=== PATIENT | female | born 1940 | race Caucasian/White ===

== ENCOUNTER 2022-10-05 13:31 | Observation (INO) | payer MEDICARE, SELFPAY ==
[2022-10-05] VITALS (14 sets, daily range): BP systolic 100–141; BP diastolic 51–78; PULSE 49–70; RESP 13–24; TEMP 36.6–36.7; O2SAT 91–98; BMI 28.8
--- NOTE | ~2022-10-05 | US_ITS ---
EXAMINATION: US carotid duplex BI DATE: 10/06/2022 10:52 INDICATION: Transient ischemic episode. Encephalopathy with altered mental status and gait disturbanc e TECHNIQUE: Grayscale, color Doppler, and pulsed Doppler images of the cervical carotid arteries were obtained. The degree of vessel stenosis is placed in one of the following categories: normal, <50%, 5 0-69%, >=70% but less than near-occlusion, near-occlusion, or total occlusion. Note that percent sten osis relative to normal distal artery lumen diameter is indirectly measured from velocity measurement s as described by Da, et al. Radiology 2003; 229:340-346. COMPARISON: None. FINDINGS: RIGHT: The right common carotid artery (CCA) peak systolic velocity (PSV) is 66 cm/s. The right internal car otid artery (ICA) PSV is 72 cm/s. The right ICA end-diastolic velocity (EDV) is 17 cm/s. The right IC A/CCA PSV ratio is 1.1. Grayscale and color Doppler images yield an estimate of <50% diameter reducti on from plaque in the ICA. The external carotid artery (ECA) PSV is 59 cm/s. There is antegrade flow in the right vertebral artery. LEFT: The left CCA PSV is 67 cm/s. The left ICA PSV is 73 cm/s. The left ICA EDV is 21 cm/s. The left ICA/C CA PSV ratio is 1.1. Grayscale and color Doppler images yield an estimate of <50% diameter reduction from plaque in the ICA. The ECA PSV is 91 cm/s. There is antegrade flow but with high resistance wave form in what is labeled as the left vertebral artery. Suspect this does not represent the left renal artery as no flow void for a patent left vertebral artery is evident at the level of the ring of C1 o n the prior brain MRI. IMPRESSION: 1. <50% stenosis in the right internal carotid artery. 2. <50% stenosis in the left internal carotid artery. 3. Left vertebral artery not definitively identified with absent left vertebral artery flow void at t he level of the ring of C1 on prior brain MR. Reviewed, dictated and finalized at location L. IMPRESSION: 1. <50% stenosis in the right internal carotid artery. 2. <50% stenosis in the left internal carotid artery. 3. Left vertebral artery not definitively identified with absent left vertebral artery flow void at the level of the ring of C1 on prior brain MR.
--- NOTE | ~2022-10-05 | MR_ITS ---
MRI of the brain Clinical History: Gait disturbance Technique: Axial and sagittal T1-weighted images were acquired. These were followed by axial T2-weigh tushar, diffusion weighted, gradient, and FLAIR images. Findings: No acute infarct, intracranial hemorrhage, or mass lesion identified. There are extensive c hronic white matter changes throughout the periventricular white matter bilaterally. Ventricles and subarachnoid spaces are unremarkable. Orbits are unremarkable. Paranasal sinuses and m astoids are clear. Major intracranial flow voids appear intact. Sagittal midline structures are intact. IMPRESSION: No acute abnormality identified. Extensive chronic microvascular ischemic change. Reviewed, dictated and finalized at location M.
--- NOTE | ~2022-10-05 | XR_ITS ---
EXAMINATION: XR chest 1V portable Exam Date/Time: 10/05/2022 15:11 CDT HISTORY: ams Comparison: CT chest 05/25/2016. RESULT: Lines, tubes, and devices: None. Lungs and pleura: Reticulonodular opacities in the right upper lung, may represent chronic atypical infection or scarring. Scar/atelectasis in the left midlung. Minimal streaky opacities in the bilater al lower lungs may represent scar/atelectasis. Senescent and emphysematous change. Cardiomediastinal silhouette: Stable. Other: No acute osseous or upper abdominal finding. IMPRESSION: Right upper lung opacities may represent chronic atypical infection or scarring. Otherwise, no acute cardiopulmonary process detected. Reviewed, dictated and finalized at location K. IMPRESSION: Right upper lung opacities may represent chronic atypical infection or scarring . Otherwise, no acute cardiopulmonary process detected.
--- NOTE | ~2022-10-05 | CT_ITS ---
EXAMINATION: CT brain wo con DATE: 10/05/2022 16:54 INDICATION: Altered mental status. Weakness. TECHNIQUE: Computed tomography (CT) of the head was performed without intravenous contrast. The mA wa s adjusted according to patient size. Iterative reconstruction technique was employed. The dose-lengt h product was 605.33 mGy-cm. COMPARISON: None FINDINGS: There are scattered areas of low attenuation in the cerebral white matter. There is no intr acranial hemorrhage, acute infarction, or abnormal intracranial mass lesion. The ventricles are emigdio l in size. There are likely changes of ocular lens replacement surgeries. The paranasal sinuses are c lear. The mastoid air cells are normal. IMPRESSION: 1. Extensive nonspecific cerebral white matter disease, which likely represents chronic small vessel ischemic disease. Reviewed, dictated and finalized at location A.
--- NOTE | ~2022-10-05 | CT_ITS ---
CT ANGIOGRAM NECK AND HEAD History: Left vertebral artery stenosis. Technique: Axial noncontrast imaging of the brain was performed. Serial spiral axial images through t he head and neck were then obtained during arterial phase IV injection of 100 cc of Omnipaque 350. 3- D postprocessing and MIP images were then reconstructed on the remote workstation. Dose reduction forest hnique was used on this scan by utilizing automated exposure control and iterative reconstruction forest hnique. The dose-length product (DLP) was 1536.32 mGy-cm. COMPARISON: 10/05/2022 No acute abnormality seen on noncontrast brain CT images. Stable chronic white matter disease and mil d generalized atrophy. CTA neck findings: Left vertebral artery is diffusely, markedly hypoplastic, but appears to be paten t otherwise. Right vertebral artery is patent, unremarkable. Bilateral common carotid, internal carot id, and external carotid arteries are patent. There are small calcified plaques of the proximal right internal carotid artery, without stenosis. There are small calcified plaques at the proximal left in ternal carotid artery, with approximately 20% stenosis. The proximal right internal carotid artery de monstrates 0% stenosis relative to the normal distal artery lumen diameter. The proximal left interna l carotid artery demonstrates 20% stenosis relative to the normal distal artery lumen diameter. CTA head findings: The distal vertebral arteries, basilar artery, and posterior cerebral arteries are patent. Distal internal carotid arteries, middle cerebral arteries, and anterior cerebral arteries a re patent. No large vessel occlusion. No stenosis or aneurysm. Severe emphysema noted at the lung apices. Probable scarring noted in the left upper lobe. Impression: Markedly hypoplastic, but patent, left vertebral artery. 20% stenosis at the proximal left internal carotid artery relative to the normal distal artery lumen diameter. Reviewed, dictated and finalized at location M. Impression: Markedly hypoplastic, but patent, left vertebral artery. 20% stenosis at the proximal left internal carotid artery relative to the emigdio l distal artery lumen diameter.
--- NOTE | 2022-10-05 13:42 | ECG_ITS ---
Measurements Intervals Doole Rate: 50 P: 15 SD: 178 QRS: 55 QRSD: 70 T: 55 QT: 448 QTc: 410 Interpretive Statements SINUS BRADYCARDIA LOW QRS VOLTAGE IN PRECORDIAL LEADS BORDERLINE ST-T WAVE ABNORMALITY- HIGH LATERAL LEADS BASELINE ARTIFACT- I, III, AVR, AVL, AVF BORDERLINE ECG NO PREVIOUS ECG AVAILABLE FOR COMPARISON Electronically Signed On 10-05-2022 15:34:33 CDT by Munir Loya D.O.
[2022-10-05 13:59] LABS: Basophils Absolute Auto 0.1 K/mm3 (0.0-0.1); Basophils Percent Auto 0.5 % (0.2-1.2); Eosinophils Absolute Auto 0.3 K/mm3 (0-0.3); Eosinophils Percent Auto 2.8 % (0-4.4); Hematocrit 39.4 % (37.0-47.0); Hemoglobin 13.3 g/dL (12.0-15.0); Immature Granulocyte Absolute 0.08 K/mm3 (0.00-0.031); Immature Granulocyte Percent A 0.8 % (0-0.5); Lymphocytes Absolute Auto 2.66 K/mm3 (0.9-3.2); Lymphocytes Percent Auto 26.8 % (18.3-44.2); Mean Corpuscular HGB Conc 33.8 g/dl (32-36); Mean Corpuscular Hemoglobin 28.8 pg (26-34); Mean Corpuscular Volume 85.3 fl (80-100); Mean Platelet Volume 9.6 fl (7.4-10.4); Monocytes Absolute Auto 0.8 K/mm3 (0.1-0.6); Monocytes Percent Auto 7.6 % (2.6-8.5); Neutrophils Absolute Auto 6.1 K/mm3 (1.3-6.7); Neutrophils Percent Auto 61.5 % (45.5-73.1); Platelet Count Result 215 k/mm3 (150-375); Red Blood Count 4.62 M/mm3 (4.2-5.4); Red Cell Distribution Width 13.2 % (11.5-14.5); White Blood Count 9.9 K/mm3 (4.5-10.0)
[2022-10-05 14:17] LABS: Alanine Aminotransferase 30 U/L (6-35); Albumin Level 4.3 g/dL (3.5-5.1); Alkaline Phosphatase 109 U/L (38-126); Anion Gap 7 mmol/L (8-16); Aspartate Amino Transferase 38 U/L (14-36); Bilirubin,Total 0.6 mg/dL (0.2-1.3); Blood Urea Nitrogen 23 mg/dL (7-17); Carbon Dioxide 27 mmol/L (22-30); Chloride 98 mmol/L (98-107); Estimated CRCL calculation 33 ml/min; Estimated Glomerular Filt Rate 48; Glucose 97 mg/dL (65-110); Potassium 4.2 mmol/L (3.4-5.0); Sodium 132 mmol/L (137-145)
[2022-10-05 15:34] LABS: Appearance Urine Clear (Clear); Bilirubin Urine Negative (Negative); Blood Urine Negative (Negative); Color Urine Yellow (Yellow); Glucose Urine UA Negative (Negative); Ketones Urine Negative (Negative); Leukocyte Esterase Ur Negative LEU/UL (Negative); Nitrate Urine Negative (Negative); Protein Urine Negative (Negative); Specific Grav Ur 1.017 (1.001-1.035); pH Urine 6.5 (5.0-9.0)
[2022-10-05 15:38] LABS: Add Urine Microscopic? NO
[2022-10-05 16:14] LABS: INR 1.1; Partial Thromboplastin Time 29.6 SECONDS (22.3-36.8)
--- NOTE | 2022-10-05 16:21 | ED.AMS ---
HPI - Altered Mental Status General Chief Complaint: Altered Mental Status Stated Complaint: altered Time Seen by Provider: 10/05/22 15:04 History of Present Illness HPI narrative: Patient is an 82-year-old female with a history of dementia, depression, anxiety, hyperlipidemia, hypertension presenting with altered mental status. Patient's and daughter are at bedside. They state that this morning she had an episode characterized by slurred speech and ataxia. States that she seemed very off balance. States that this is happened off and on over the last several months but this was the most severe episode. They state that she was actually supposed to see her PCP this afternoon but they came into the ER due to this episode. Currently, the patient denies complaints. No recent fevers, headache, numbness or focal weakness, chest pain, shortness of breath, cough, abdominal pain, nausea or vomiting, diarrhea, dysuria, leg swelling. Patient's family reports that she seems to drink a lot of water. Review of Systems Review of Systems: All systems reviewed & are unremarkable except as noted in HPI and below Exam Narrative: GENERAL: Elderly female lying in bed in no acute distress HEAD: Normocephalic, atraumatic. EYES: PERRLA and EOMI. ENT: Nares clear, no rhinorrhea or epistaxis. Mucous membranes moist. NECK: Supple. CHEST: Clear to auscultation. No respiratory distress. HEART: Regular rate and rhythm. ABDOMEN: Soft, nontender, nondistended, normal active bowel sounds. EXTREMITIES: Normal range of motion. No edema. SKIN: Warm, dry, no rash. NEURO: No focal deficits. Alert and oriented x2. 5 out of 5 strength in all extremities, no sensory deficits, no pronator drift, no facial droop or slurred speech PSYCH: Normal mood and affect. Course Vital Signs Vital signs: Vital Signs Temperature 97.9 F 10/05/22 13:35 Pulse Rate 49 L 10/05/22 13:35 Respiratory Rate 20 10/05/22 13:35 Blood Pressure 100/55 L 10/05/22 13:35 Pulse Oximetry 98 10/05/22 13:35 Oxygen Delivery Room Air 10/05/22 13:35 Temperature 97.9 F 10/05/22 13:35 Pulse Rate 56 L 10/05/22 15:30 Respiratory Rate 17 10/05/22 15:30 Blood Pressure 116/78 10/05/22 15:16 Pulse Oximetry 95 10/05/22 15:30 Oxygen Delivery Room Air 10/05/22 13:35 MDM - Altered Mental Status MDM Narrative Medical decision making narrative: Patient is an 82-year-old female presenting with an episode of slurred speech and ataxia. Patient is bradycardic, otherwise vitals are within normal limits. Exam is remarkable for the above. EKG per my interpretation shows sinus bradycardia, normal axis, nonspecific ST-T wave abnormalities, no ST elevations or depressions. No priors for comparison. Lab Data 10/05/22 13:50 10/05/22 13:50 Labs: Lab Results 10/05/22 10/05/22 10/05/22 Range/Units 13:50 13:50 15:21 WBC 9.9 (4.5-10.0) K/mm3 RBC 4.62 (4.2-5.4) M/mm3 Hgb 13.3 (12.0-15.0) g/dL Hct 39.4 (37.0-47.0) % MCV 85.3 (80-100) fl MCH 28.8 (26-34) pg MCHC 33.8 (32-36) g/dl RDW 13.2 (11.5-14.5) % Plt Count 215 (150-375) k/mm3 MPV 9.6 (7.4-10.4) fl Immature Gran % (Auto) 0.8 H (0-0.5) % Neut % (Auto) 61.5 (45.5-73.1) % Lymph % (Auto) 26.8 (18.3-44.2) % Price % (Auto) 7.6 (2.6-8.5) % Eos % (Auto) 2.8 (0-4.4) % Baso % (Auto) 0.5 (0.2-1.2) % Lymph # (Auto) 2.66 (0.9-3.2) K/mm3 Price # (Auto) 0.8 H (0.1-0.6) K/mm3 Eos # (Auto) 0.3 (0-0.3) K/mm3 Baso # (Auto) 0.1 (0.0-0.1) K/mm3 Abs Immat Gran (auto) 0.08 H (0.00-0.031) K/mm3 Absolute Neuts (auto) 6.1 (1.3-6.7) K/mm3 Absolute Nucleated RBC 0.0 (0.0-0.012) K/mm3 Nucleated RBC % 0.0 (0.0-0.2) % PT (11.1-14.7) Seconds INR APTT (22.3-36.8) SECONDS Sodium 132 L (137-145) mmol/L Potassium 4.2 (3.4-5.0) mmol/L Chloride 98 (98-107) mmol/L Carbon Di
[2022-10-05 16:46] LABS: Troponin I 0.027 ng/mL (0.000-0.034)
[2022-10-05] MEDS: SODIUM CHLORIDE 0.9% IV 1,000 ML 999 ML IV CONT (17:29)
--- NOTE | 2022-10-05 20:09 | PM.IMHP ---
H&P: HPI History of Present Illness Date/Time: 10/05/22 20:09 Chief Complaint: Gait disturbance Narrative: This is an 82-year-old female with past medical history significant for dyslipidemia, generalized anxiety disorder, hypertension. Patient presented to the emergency room after having episode of gait disturbance feeling wobbly on her is on her gait unsteady have fell several times at home with no trauma or injury or loss of consciousness when she got up in the morning she was her usual self this happened at around noontime patient denied any vision changes, headaches, lightheadedness, no palpitations, no nausea, no vomiting, no abdominal pain, no diarrhea, no fevers, no rigors, no chills, no focal sensorimotor deficit. According to emergency room notes as per and daughter patient had some speech disturbance as well patient is now back to her usual self and denies any issues. Preliminary workup was significant for: CT of the head without contrast was reported as: FINDINGS: There are scattered areas of low attenuation in the cerebral white matter. There is no intracranial hemorrhage, acute infarction, or abnormal intracranial mass lesion. The ventricles are normal in size. There are likely changes of ocular lens replacement surgeries. The paranasal sinuses are clear. The mastoid air cells are normal. IMPRESSION: 1. Extensive nonspecific cerebral white matter disease, which likely represents chronic small vessel ischemic disease. A chest x-ray was reported as: RESULT: Lines, tubes, and devices:? None. Lungs and pleura:? Reticulonodular opacities in the right upper lung, may represent chronic atypical infection or scarring. Scar/atelectasis in the left midlung. Minimal streaky opacities in the bilateral lower lungs may represent scar/atelectasis. Senescent and emphysematous change. Cardiomediastinal silhouette:? Stable. Other:? No acute osseous or upper abdominal finding. ? IMPRESSION: Right upper lung opacities may represent chronic atypical infection or scarring. Otherwise, no acute cardiopulmonary process detected. Review of Systems Review of Systems: Gait disturbance, wobbly, falls, speech disturbance. Constitutional: Constitutional: Denies chills, Denies fatigue, Denies fever(s), Denies lethargy, Denies malaise, Denies night sweats, Denies poor appetite and Denies weakness Eyes: Eyes: Denies change in vision ENT: Denies dysphagia, Denies vertigo, Denies dizziness and Denies odynophagia Cardiovascular: Cardiovascular: Denies chest pain, Denies leg edema, Denies lightheadedness, Denies radiating jaw, neck or arm pain and Denies palpitations Respiratory: Respiratory: Denies chest congestion, Denies cough, Denies dyspnea on exertion and Denies wheezing Gastrointestinal: Gastrointestinal: Denies abdominal pain, Denies dyspepsia, Denies heartburn, Denies diarrhea, Denies nausea and Denies vomiting Genitourinary: Genitourinary: Denies dysuria Musculoskeletal: Musculoskeletal: Denies myalgias, Denies joint swelling and Denies muscle weakness Integumentary/Breasts: Skin/Breast: Denies rash Neurologic: Reports Abnormal speech present, Reports abnormal gait, Denies focal weakness and Denies Sensory deficit (Neuro) Psychiatric: Psychiatric: Reports no additional psychiatric complaints and Reports as per HPI Endocrine: Endocrine: Denies cold intolerance, Denies flushing, Denies heat intolerance, Denies polyphagia, Denies polydipsia and Denies palpitations Hematologic/Lymphatic: Hematologic/Lymphatic: Reports no additional hematologic/lymphatic complaints and Reports as per HPI Allergic/Immunologic: Allergic/Immunologic: Reports no additional allergic/immunologic complaints and Reports as per HPI [facility] Family History Family History (Updated 10/05/22 @ 22:02 by Yan Goyal RN) Mother Diabetes mellitus AA (aortic aneurysm) Father Heart problem Social History Social History (Reviewed 10/05/22
[2022-10-05 21:02] LABS: Troponin I 0.028 ng/mL (0.000-0.034)
--- NOTE | 2022-10-05 21:20 | ADMGEN ---
This patient, Georgiana Pinedo, was admitted to Medical Room 247-. Patient/family oriented to hospital policies and general routines including ID bracelet, bed and alarms, visiting hours, pain management, procedures, bathroom and other care routines, personal items, smoking policy, room service/diet, and visiting hours. Information on how to activate the Rapid Response Team has been discussed. Patient/Family are encouraged to report perceived risks to care and to ask questions if they do not understand what they are told or what they should do.
[2022-10-06] VITALS (9 sets, daily range): BP systolic 115–146; BP diastolic 51–58; PULSE 54–72; RESP 16–20; TEMP 36.3–36.6; O2SAT 93–100
--- NOTE | 2022-10-06 | ECHO_ITS ---
Patient Info Name: Georgiana Pinedo Age: 82 years : 1940 Gender: Female Ht: 65 in Wt: 172 lbs BSA: 1.91 m2 HR: 59 bpm BP: 146 / 55 mmHg Heart Rhythm: Sinus Rhythm Technical Quality: Fair Exam Date: 10/06/2022 1:18 PM Exam Location: [facility] Patient Status: Outpatient Admit Date: 10/05/2022 Staff Ordering Physician: Shayy Trujillo APRN Nurse First Aid: Mona Michael RDCS Attending Provider: Taylor Alberto MD Referring Physician: Ronnie ARMENTA; Exam Type: CA echo dop bubble study w con Study Info Indications - TIA Complete two-dimentional, color flow and Doppler transthoracic echocardiogram is performed with agitated saline and with contrast to opacify the left ventricle and to improve the delineation of the left ventricle endocardial borders. Contrast/Agitated Saline Contrast/Ag. Saline: Agitated Saline Amount: 20.00 ml Administered By: Shannan Gonzales RDCS Existing IV Access: Yes IV Access Condition: patent with no signs of infiltration Contrast/Ag. Saline: Definity Amount: 3.00 ml Administered By: Mona Michael RDCS Existing IV Access: Yes IV Access Condition: patent with no signs of infiltration Summary 1. Left ventricular chamber dimension is normal. 2. Left ventricular systolic function is normal, estimated at >70%. 3. The left ventricular diastolic function is grade I diastolic dysfunction. 4. Right ventricular systolic function is normal. 5. Intact interatrial septum visualized by color flow and agitated saline imaging. Negative bubble study. 6. There is mild tricuspid valve regurgitation. 7. There is mild-moderate aortic atherosclerosis. Left Ventricle Left ventricular chamber dimension is normal. Left ventricular systolic function is normal, estimated at >70%. The left ventricular diastolic function is grade I diastolic dysfunction. Global longitudinal strain is abnormal at -16 %. Right Ventricle Right ventricular chamber dimension is normal. Right ventricular systolic function is normal. Left Atria Left atrial chamber dimension is normal. Right Atria Right atrial chamber dimension is normal. Atrial Septum Intact interatrial septum visualized by color flow and agitated saline imaging. Negative bubble study. Aortic Valve The aortic valve is trileaflet. There is mild aortic valve sclerosis. There is no aortic valve stenosis. There is no aortic valve regurgitation. Pulmonic Valve The pulmonic valve is not well visualized. Mitral Valve There is no mitral valve stenosis. There is trace mitral valve regurgitation. The mitral valve annulus is mildly calcified. Tricuspid Valve The tricuspid valve leaflets are normal. There is no significant tricuspid valve stenosis. There is mild tricuspid valve regurgitation. Pericardium/Pleural The pericardium appears epicardial fat pad. There is no pericardial effusion. Inferior Vena Cava Normal inferior vena cava with >50% collapse upon inspiration consistent with normal right atrial pressure, 3 mmHg. Aorta The aortic root size at the sinus of Valsalva is normal. There is mild-moderate aortic atherosclerosis. Left Ventricular Outflow Tract Name Value Normal L
[2022-10-06] MEDS: cefTRIAXone 2 GM/NS 100 ML 2 GM/100 ML BAG IVPB ×2 (02:07→21:27)
[2022-10-06] MEDS: buPROPion HCL SR (12 HR) 150 MG TAB PO ×2 (08:58→16:42)
[2022-10-06] MEDS: hydroCHLOROthiazide 12.5 MG CAPSULE PO (08:58)
[2022-10-06] MEDS: lisinopriL 10 MG TABLET PO (08:58)
[2022-10-06] MEDS: ATORVASTATIN 20 MG TABLET PO (08:58)
[2022-10-06] MEDS: METOPROLOL TARTRATE 50 MG TAB PO ×2 (08:59→21:27)
--- NOTE | 2022-10-06 09:13 | PM.IMPN ---
Progress Note: A&P Assessment and Plan (1) TIA (transient ischemic attack): Code(s): G45.9 - Transient cerebral ischemic attack, unspecified Status: Suspected Assessment and Plan: Presented for evaluation of slurred speech, ataxia and frequent falls. glucose [address] without hemorrhage. Brain MRI without acute or subacute infarct, extensive chronic microvascular ischemic changes were noted Echo with bubble study without PFO or ASD Carotid US with less than 50% stenosis right and left ICA Neuro checks Q4 PT/OT Consulted Neurology B12 [id number], folate 8.5, TSH 3.15, lipid panel- LDL 36, HDL 44, triglycerides 92. Continue atorvastatin Monitor BP and continue antihypertensive (2) Gait disturbance: Code(s): R26.9 - Unspecified abnormalities of gait and mobility Status: Acute Assessment and Plan: TIA work up r/o cerebellar stroke PT/OT evaluation Patient with resolution of symptoms at this time (3) Lung infiltrate: Code(s): R91.8 - Other nonspecific abnormal finding of lung field Status: Acute Assessment and Plan: possible right upper chest pneumonia with Lung infiltrate seen on chest x-ray and patient presenting with cough and altered mental status Blood cultures pending given Rocephin 1 g Q 24 hours and Zithromax 500 mg Q 24 hours, 1st dose given today 314. Family reports patient is improved after antibiotics initiated. Will continue antibiotics for 5 to to 7 days depending on patient's overall response (4) Hypertension: Code(s): I10 - Essential (primary) hypertension Status: Chronic Assessment and Plan: continue p.o. metoprolol tartrate b.i.d., lisinopril with hydrochlorothiazide as BP tolerates Continue to monitor Time Spent With Patient Time with patient: 25 - 35 minutes Subjective Date/time seen: 10/06/22 09:13 patient found sitting up in the chair with family at bedside. She denies any symptoms at this time. Family reports prior to admission the patient was hallucinating and seeing bugs, unable to stand, and very confused which is not baseline. her reports she had a nonproductive cough as well. Review of Systems Review of Systems: All systems reviewed & are unremarkable except as noted in HPI and below Exam Narrative: General: No acute distress.? Well-developed older adult female sitting up in bed Mental Status/Psych: Awake, alert and oriented to person, place, time with clear speech. Pleasant and cooperative. Skin: fair, warm, dry and intact without rashes or lesions. No open wounds. fair turgor.? HEENT: Normocephalic. Sclera is non-icteric. PERRL, EOM intact without nystagmus. Oral mucosa pink and moist. Neck: No JVD. Heart: S1 and S2 regular rate and rhythm. No murmurs, gallops, or rubs auscultated. Chest: Respirations even and unlabored. Lung sounds diminished right upper chest, no wheezes, rhonchi, or rales. Abdomen: Soft, obese and non-tender to palpation.? Bowel sounds present in all 4 quadrants. No guarding. Extremities:? No edema, erythema or calf tenderness. Grossly normal ROM. Neurological: No focal sensory or motor deficits. gait not tested. No pronator drift, facial droop, tongue deviation, and cranial nerves 2-12 are intact. Bxef-og-ctas is intact Objective Data Vital Signs Vital Signs: Vital Signs - 24 hr 10/05/22 13:35 10/05/22 15:02 10/05/22 15:02 Temperature 97.9 F Pulse Rate 49 L 52 L 61 Respiratory Rate 20 16 13 Blood Pressure 100/55 L 116/78 132/70 Pulse Oximetry 98 94 91 Oxygen Delivery Room Air 10/05/22 15:03 10/05/22 15:15 10/05/22 15:16 Temperature Pulse Rate 70 60 Respiratory Rate 19 24 H 22 H Blood Pressure 116/78 Pulse Oximetry 94 92 93 Oxygen Delivery 10/05/22 15:30 10/05/22 16:00 10/05/22 16:45 Temperature Pulse Rate 56 L 61 60 Respiratory Rate 17 18 17 Blood Pressure 112/76 118/60 Pulse Oximetry 95 94 95 Oxygen Delivery 10/05/22 17:30 0
[2022-10-06 09:23] LABS: Basophils Absolute Auto 0.1 K/mm3 (0.0-0.1); Basophils Percent Auto 0.7 % (0.2-1.2); Eosinophils Absolute Auto 0.3 K/mm3 (0-0.3); Eosinophils Percent Auto 3.4 % (0-4.4); Hematocrit 37.7 % (37.0-47.0); Hemoglobin 12.5 g/dL (12.0-15.0); Immature Granulocyte Absolute 0.04 K/mm3 (0.00-0.031); Immature Granulocyte Percent A 0.5 % (0-0.5); Lymphocytes Absolute Auto 2.32 K/mm3 (0.9-3.2); Lymphocytes Percent Auto 31.3 % (18.3-44.2); Mean Corpuscular HGB Conc 33.2 g/dl (32-36); Mean Corpuscular Hemoglobin 29.2 pg (26-34); Mean Corpuscular Volume 88.1 fl (80-100); Mean Platelet Volume 10.4 fl (7.4-10.4); Monocytes Absolute Auto 0.8 K/mm3 (0.1-0.6); Monocytes Percent Auto 10.5 % (2.6-8.5); Neutrophils Percent Auto 53.6 % (45.5-73.1); Platelet Count Result 191 k/mm3 (150-375); Red Blood Count 4.28 M/mm3 (4.2-5.4); Red Cell Distribution Width 13.4 % (11.5-14.5); White Blood Count 7.4 K/mm3 (4.5-10.0)
[2022-10-06 09:37] LABS: Anion Gap 6 mmol/L (8-16); Blood Urea Nitrogen 19 mg/dL (7-17); CRP 0.9 mg/dL (<1.0); Calcium 8.9 mg/dL (8.4-10.2); Carbon Dioxide 26 mmol/L (22-30); Chloride 102 mmol/L (98-107); Cholesterol 108 mg/dL (0-200); Estimated CRCL calculation 38 ml/min; Estimated Glomerular Filt Rate 48; Glucose 75 mg/dL (65-110); HDL Direct 44 mg/dL; Potassium 3.9 mmol/L (3.4-5.0); Sodium 134 mmol/L (137-145); Triglycerides 92 mg/dL (<150)
[2022-10-06 09:46] LABS: LDL Cholesterol Direct 36 mg/dL
[2022-10-06 09:51] LABS: Procalcitonin 0.1 ng/mL
[2022-10-06 11:07] LABS: Folic Acid 8.5 ng/mL (2.76->20)
[2022-10-06] MEDS: PERFLUTREN LIPID MICROSPHERES 1.5 ML VIAL DILUTED TO 10 ML TOTAL VOLUME IV PUSH (13:55)
[2022-10-07] VITALS (11 sets, daily range): BP systolic 84–144; BP diastolic 45–60; PULSE 48–60; RESP 18–20; TEMP 36.4–37; O2SAT 92–96
[2022-10-07 05:39] LABS: Basophils Absolute Auto 0.1 K/mm3 (0.0-0.1); Basophils Percent Auto 0.7 % (0.2-1.2); Eosinophils Absolute Auto 0.3 K/mm3 (0-0.3); Eosinophils Percent Auto 3.6 % (0-4.4); Hematocrit 37.7 % (37.0-47.0); Hemoglobin 12.5 g/dL (12.0-15.0); Immature Granulocyte Absolute 0.05 K/mm3 (0.00-0.031); Immature Granulocyte Percent A 0.7 % (0-0.5); Lymphocytes Absolute Auto 2.37 K/mm3 (0.9-3.2); Lymphocytes Percent Auto 31.5 % (18.3-44.2); Mean Corpuscular HGB Conc 33.2 g/dl (32-36); Mean Corpuscular Hemoglobin 28.9 pg (26-34); Mean Corpuscular Volume 87.3 fl (80-100); Mean Platelet Volume 10.2 fl (7.4-10.4); Monocytes Absolute Auto 0.7 K/mm3 (0.1-0.6); Monocytes Percent Auto 9.8 % (2.6-8.5); Neutrophils Percent Auto 53.7 % (45.5-73.1); Platelet Count Result 188 k/mm3 (150-375); Red Blood Count 4.32 M/mm3 (4.2-5.4); Red Cell Distribution Width 13.2 % (11.5-14.5); White Blood Count 7.5 K/mm3 (4.5-10.0)
[2022-10-07 05:41] LABS: Alanine Aminotransferase 29 U/L (6-35); Albumin Level 3.9 g/dL (3.5-5.1); Alkaline Phosphatase 85 U/L (38-126); Anion Gap 7 mmol/L (8-16); Aspartate Amino Transferase 37 U/L (14-36); Bilirubin,Total 0.5 mg/dL (0.2-1.3); Blood Urea Nitrogen 18 mg/dL (7-17); Carbon Dioxide 25 mmol/L (22-30); Chloride 103 mmol/L (98-107); Estimated CRCL calculation 38 ml/min; Estimated Glomerular Filt Rate 48; Glucose 83 mg/dL (65-110); Potassium 4.3 mmol/L (3.4-5.0); Sodium 135 mmol/L (137-145)
[2022-10-07] MEDS: METOPROLOL TARTRATE 50 MG TAB PO (08:29)
[2022-10-07] MEDS: ATORVASTATIN 20 MG TABLET PO (08:29)
[2022-10-07] MEDS: hydroCHLOROthiazide 12.5 MG CAPSULE PO (08:29)
[2022-10-07] MEDS: buPROPion HCL SR (12 HR) 150 MG TAB PO (08:29)
[2022-10-07] MEDS: lisinopriL 10 MG TABLET PO (08:30)
--- NOTE | 2022-10-07 10:02 | WPDNEURCNPN ---
Assessment and Plan Assessment and plan (1) Gait disturbance: Code(s): R26.9 - Unspecified abnormalities of gait and mobility Status: Acute (2) Lung infiltrate: Code(s): R91.8 - Other nonspecific abnormal finding of lung field Status: Acute (3) Hypertension: Code(s): I10 - Essential (primary) hypertension Status: Chronic (4) Dementia: Code(s): F03.90 - Unspecified dementia, unspecified severity, without behavioral disturbance, psychotic disturbance, mood disturbance, and anxiety Status: Acute Plan Georgiana Pinedo is a 82 year old female with a history of dementia, anxiety, depression, hyperlipidemia, and hypertension presenting with gait instability and speech changes. MRI brain negative for acute stroke. Currently being treated for possible pneumonia. Seems like there is a chronic dementia component that may have been acute exacerbated by possible underlying infection. On carotid Doppler the L vertebral artery was not definitively identified with absent L vertebral artery flow void at the level of the ring of C1. Vertebrobasilar insufficiency could be the cause of her symptoms. - Will obtain CTA brain and carotid - If there is significant stenosis/occlusion --will need to add Plavix 75mg daily and also refer to stroke Neurologist as outpatient for possible intervention Consult date: 10/07/22 Reason for consult: Altered mental status HPI: Georgiana Pinedo is a 82 year old female with a history of dementia, anxiety, depression, hyperlipidemia, and hypertension. Patient presented to [place] ED after having gait issues of feeling unsteady. She did have several falls at home on day of presentation but did not hit her head or have any loss of consciousness. Patient woke up yesterday morning feeling like herself, and started to become symptomatic around afternoon. Per daughter patient had some speech issues (slurred). Per , patient was acting like she was drunk . He also mentioned that patient has had about two to three similar episodes over the past few months. She already takes aspirin 81mg daily. She does not smoke. In the ED CT head showed small vessel disease. Her labs were unrevealing. CXR was concerning for pneumonia. MRI brain showed no acute abnormalities. Carotid Doppler showed <50% stenosis bilaterally, as well as left vertebral artery not definitively identified with absent L vertebral artery flow void at the level of the ring of C1. Additional labs including B12, folate, and TSH were all within normal range. Her LDL was 36. Patient is currently on antibiotics for possible pneumonia. She does not take anything for dementia. Patient feels pretty much at baseline. She denies any dizziness currently and her speech is normal per family. Review of Systems Constitutional: Constitutional: Reports no additional constitutional complaints Eyes: Eyes: Reports no additional eye complaints ENT: Reports system reviewed and no additional complaints, except as documented Cardiovascular: Cardiovascular: Reports no additional cardiovascular complaints Respiratory: Respiratory: Reports no additional respiratory complaints Gastrointestinal: Gastrointestinal: Reports no additional gastrointestinal complaints Genitourinary: Genitourinary: Reports no additional female genitourinary complaints Musculoskeletal: Musculoskeletal: Reports no additional musculoskeletal complaints Integumentary/Breasts: Skin/Breast: Reports system reviewed and no additional complaints, except as docu Neurologic: Reports as per HPI Psychiatric: Psychiatric: Reports no additional psychiatric complaints [facility] Family History Family History (Updated 10/05/22 @ 22:02 by Yan Goyal RN) Mother Diabetes mellitus AA (aortic aneurysm) Father Heart problem Social History Social History Smoking packs per day: 1 Smoking cigarettes per day: 20.0 Y
[2022-10-07] MEDS: AZITHROMYCIN 250 MG TABLET 500 MG PO (10:19)
--- NOTE | 2022-10-07 14:56 | PM.DS ---
DS: Admitting Diagnosis Discharge Date 10/07/2022 Admitting Diagnosis Gait disturbance Lung infiltrate Essential (primary) hypertension DS: Discharge Diagnosis Discharge Diagnosis (1) TIA (transient ischemic attack): Code(s): G45.9 - Transient cerebral ischemic attack, unspecified Status: Suspected Assessment and Plan: Presented for evaluation of slurred speech, ataxia and frequent falls. glucose [address] without hemorrhage. Brain MRI without acute or subacute infarct, extensive chronic microvascular ischemic changes were noted Echo with bubble study without PFO or ASD Carotid US with less than 50% stenosis right and left ICA CTA head/neck- left vertebral artery hypoplastic and 20% stenosis proximal left ICA Neuro checks Q4 monitored. PT/OT evaluation Consulted Neurology. B12 387, folate 8.5, TSH 3.15, lipid panel- LDL 36, HDL 44, triglycerides 92. Continued atorvastatin high dose. Monitor BP and continued antihypertensive (2) Gait disturbance: Code(s): R26.9 - Unspecified abnormalities of gait and mobility Status: Acute Assessment and Plan: TIA work up started. No cerebellar infarct noted. PT/OT evaluation Patient with resolution of symptoms and no home therapy needed. (3) Lung infiltrate: Code(s): R91.8 - Other nonspecific abnormal finding of lung field Status: Acute Assessment and Plan: possible right upper chest pneumonia with Lung infiltrate seen on chest x-ray and patient presenting with cough and altered mental status Blood cultures negative to date. given Rocephin 1 g Q 24 hours and Zithromax 500 mg Q 24 hours, 1st dose given 3/. Family reports patient is improved after antibiotics initiated. Azithromycin 500 mg IV/PO given x 3 doses. Cefuroxime 500 mg PO BID x5 days continued on discharge. (4) Hypertension: Code(s): I10 - Essential (primary) hypertension Status: Chronic Assessment and Plan: continued p.o. 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 Neurology following and suggest this may be contributing to symptoms. Outpatient referral to stroke neurology to be made by neurology office. (6) Dementia: Code(s): F03.90 - Unspecified dementia, unspecified severity, without behavioral disturbance, psychotic disturbance, mood disturbance, and anxiety Status: Chronic Assessment and Plan: Concerns for dementia. Aricept started DS: Summary Hospital Course Reason for hospitalization: Gait disturbance Hospital Course: Georgiana Pinedo is an 82-year-old female with dyslipidemia, generalized anxiety disorder, and hypertension.? She presented to the emergency room after having episode of gait disturbance feeling wobbly and reported she fell several times at home with no trauma, injury or loss of consciousness. When she got up in the morning she was her usual state, however around noontime she was more confused. Patient denied vision changes, headaches, lightheadedness, palpitations, nausea, vomiting, abdominal pain, diarrhea, fevers, rigors, chills, or focal sensorimotor deficit.?Per her and daughter, patient had some speech disturbance that was transient.?CT head w/o contrast was negative for hemorrhage or infarct, but showed extensive nonspecific cerebral white matter disease suggestive of chronic small vessel ischemic disease. Chest xray suggested RUL opacities suggestive of atypical infection or scarring. Family did not the patient had a chronic nonproductive cough. CBC and CMP were unremarkable except notable for mildly elevated BUN, creatinine and GFR 49. She was admitted to the medical floor for further evaluation. IV Rocephin 1 gram Q24 and IV Azithro
== END 2022-10-07 16:02 | disposition home or self-care (01) ==
LOC: ANHED 15:10 → ANH2MED 20:50
PROVIDERS: Emergency Medicine; Nurse Practitioner Family; Admitting Provider Internal Medicine; Emergency Provider Emergency Medicine; PCP Family Medicine; Visit Provider Internal Medicine
DX: G45.9 Transient cerebral ischemic attack, unspecified (principal); R91.8 Other nonspecific abnormal finding of lung field; I11.9 Hypertensive heart disease without heart failure; R41.82 Altered mental status, unspecified; R00.1 Bradycardia, unspecified; R90.82 White matter disease, unspecified; I70.0 Atherosclerosis of aorta; Z23 Encounter for immunization; I07.1 Rheumatic tricuspid insufficiency; F03.90 Unspecified dementia, unspecified severity, without behavioral disturbance, psychotic disturbance, mood disturbance, and anxiety; F32.A Depression, unspecified; F41.9 Anxiety disorder, unspecified; E78.5 Hyperlipidemia, unspecified; Z87.891 Personal history of nicotine dependence; Z79.899 Other long term (current) drug therapy
CPT/HCPCS: 36415; 70450; 70496; 70498; 70551; 71045; 80048; 80053; 80061; 81003; 82607; 82746; 83605; 83735; 84145; 84443; 84484; 85025; 85610; 85730; 86140; 87040; 90471; 90694; 93005; 93880; 96360; 96361; 96365; 96366; 96367; 96375; 97161; 97165; 99285; A9270; C8929; G0008; G0378; J0456; J0696; J7030; Q9957; Q9967